=== PATIENT | male | born 1995 | race Two or more races ===

== ENCOUNTER 2016-12-30 02:30 | Emergency (ER) | payer OTHER ==
[2016-12-30 02:35] VITALS: RESP 16
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
[2016-12-30 03:37] VITALS: BP 121/75; PULSE 76; TEMP 97.9; O2SAT 98
== END 2016-12-30 03:39 | disposition home or self-care (01) ==
PROC: 2W28X4Z Dressing of Right Upper Extremity using Bandage (ICD-10-PCS; principal; 2016-12-30)
DX: T23.201A Burn of second degree of right hand, unspecified site, initial encounter (principal); T31.0 Burns involving less than 10% of body surface; X19.XXXA Contact with other heat and hot substances, initial encounter